=== PATIENT | male | born 1985 | race African-American/Black ===

== ENCOUNTER 2024-05-11 18:16 | Emergency (ER) | payer SELFPAY ==
[~2024-05-11] VITALS: Ht 177.8 cm; Wt 71.7 kg
[2024-05-11 18:30] VITALS: PULSE 81; RESP 19; TEMP 98.3; O2SAT 99
[2024-05-11] MEDS ORDERED: ULTRAM 50MG50 MG PO (18:40)
[2024-05-11] MEDS ORDERED: PENCILLIN V PO250 MG PO (18:40)
== END 2024-05-11 18:53 | disposition home or self-care (01) ==
LOC: FSED 18:20
DX: K04.7 Periapical abscess without sinus (principal)
CPT/HCPCS: 99283